=== PATIENT | female | born 1980 | race Caucasian/White ===

== ENCOUNTER 2016-10-30 00:50 | Emergency (ER) | payer BC ==
[~2016-10-30] VITALS: Ht 170.2 cm; Wt 70.3 kg
[2016-10-30] MEDS ORDERED: BENADRYL25 MG ORAL (01:04)
[2016-10-30] MEDS ORDERED: ZYRTEC10 MG ORAL (01:04)
[2016-10-30] MEDS ORDERED: VESTURA 3 MG-01 EACH PO (01:04)
[2016-10-30 01:05] VITALS: BP 121/80
--- NOTE | 2016-10-30 01:27 | Emergency Room Report ---
History of Present Illness General Chief Complaint: Abdominal Pain Source: Patient Present Illness HPI Is a 35-year-old female with no past medical history. She presents with chief complaint abdominal cramps with vomiting and diarrhea. Onset was about 3 hours ago. Denies any fever or chills. Pain is crampy in nature 08/04. Vomiting is nonbloody nonbilious. Watery diarrhea. No other complaint. Allergies: Coded Allergies: AMPICILLIN (Verified Allergy, Unknown, 10/30/16) SHRIMP (Verified Allergy, Unknown, 10/30/16) Patient History Past Medical History: see triage record, old chart reviewed Past Surgical History: appy, other Pertinent Family History: none Social History: Denies: smoking Last Menstrual Period: 2 WEEKS AGO Now: No Immunizations: other Reviewed Nursing Documentation: PMH: Agreed, PSxH: Agreed Nursing Documentation-PMH Hx Asthma: Yes Review of Systems Eye: Denies: blurred vision, eye pain ENT: Denies: ear pain, nose congestion, throat swelling Respiratory: Denies: cough, shortness of breath Cardiovascular: Denies: chest pain, palpitations Gastrointestinal: Reports: abdominal pain, diarrhea, nausea, vomiting Musculoskeletal: Denies: back pain, joint pain Skin: Denies: rash Neurological: Denies: headache, numbness Endocrine: Denies: increased thirst, increased urine Hematologic/Lymphatic: Denies: easy bruising All Other Systems: negative except mentioned in HPI Physical Exam Vital Signs Date Time Temp Pulse Resp B/P Pulse Ox O2 Delivery O2 Flow Rate FiO2 10/30/16 00:58 98.1 64 18 121/80 98 Room Air vital signs normal Sp02 EP Interpretation: reviewed, normal General Appearance: well appearing, no apparent distress, alert Head: normocephalic, atraumatic Eyes: bilateral eye EOMI, bilateral eye PERRL ENT: hearing grossly normal, normal pharynx Neck: full range of motion, supple, no meningismus Respiratory: chest non-tender, lungs clear, normal breath sounds Cardiovascular #1: regular rate, rhythm, no murmur Gastrointestinal: non tender, no mass, no organomegaly, no bruit, non-distended , decreased bowel sounds Musculoskeletal: back normal, gait/station normal, normal range of motion Psychiatric: mood/affect normal Skin: warm/dry Medical Decision Making Diagnostic Impression: Primary Impression: Nausea vomiting and diarrhea ER Course Patient with vomiting and diarrhea. Most likely a viral illness versus gastroenteritis from food poisoning. Doubt acute abdomen or obstruction. Patient felt better now. Possible urinary tract infection. We'll go ahead and treat with antibiotics. Lab Results Impression labs unremarkable Last Vital Signs Date Time Temp Pulse Resp B/P Pulse Ox O2 Delivery O2 Flow Rate FiO2 10/30/16 01:05 98.1 18 121/80 98 Room Air 10/30/16 00:58 64 Status: improved Disposition: HOME, SELF-CARE Condition: Stable Scripts Ondansetron (Zofran) 4 Mg Tablet 4 MG ORAL Q6H Y for Nausea & Vomiting, #10 TAB 0 Refills Prov: FERN GONZALES M.D. 10/30/16 Additional Instructions: Followup with your Dr. in 2-3 days. Return if symptom worsen. Advance diet as tolerated. FERN GONZALES M.D. Oct 30, 2016 01:27
[2016-10-30] MEDS ORDERED: Ketorolac 30mg Inj IV ONE (01:30)
[2016-10-30 01:51] LABS: BASOPHILS % (AUTO) 1.3 % (0.0-2.0); EOSINOPHILS % (AUTO) 1.5 % (0.0-3.0); MEAN CORPUSCULAR HGB CONC 34.3 G/DL (32.0-36.0); MEAN CORPUSCULAR VOLUME 90 FL (80-99); MEAN PLATELET VOLUME 7.9 FL (6.5-10.1); MONOCYTES % (AUTO) 6.2 % (1.0-10.0); PLATELET COUNT 285 K/UL (150-450); RED BLOOD COUNT 4.33 M/UL (4.20-5.40); RED CELL DISTRIBUTION WIDTH 10.3 % (11.6-14.8); WHITE BLOOD COUNT 10.8 K/UL (4.8-10.8)
[2016-10-30 01:54] LABS: NITRITE,URINE NEGATIVE (NEGATIVE)
[2016-10-30 02:00] LABS: APPEARANCE,URINE SLIGHTLY CLOUDY; PROTEIN,URINE 2+ (NEGATIVE)
[2016-10-30 02:01] LABS: KETONES,URINE 2+ (NEGATIVE); LEUKOCYTE ESTERASE ,URINE 1+ (NEGATIVE); UROBILINOGEN,URINE 1 MG/DL (0.0-1.0)
[2016-10-30 02:02] LABS: RBC,URINE TNTC /HPF (0 - 2)
[2016-10-30 02:03] LABS: BACTERIA,URINE MODERATE /HPF; MUCUS,URINE FEW /LPF (NONE/OCC); SQUAMOUS EPITHELIAL CELL,UR MODERATE /LPF (NONE/OCC)
[2016-10-30 02:07] LABS: ALANINE AMINOTRANSFERASE 10 U/L (3-33); ALBUMIN/GLOBULIN RATIO 1.5 (1.0-2.7); ANION GAP 14 (5-15); ASPARTATE AMINO TRANSFERASE 20 U/L (5-40); CALCIUM 9.4 mg/dL (8.6-10.2); CARBON DIOXIDE 24 mEQ/L (20-30); CHLORIDE 99 mEQ/L (98-107); CREATININE 0.9 mg/dL (0.5-0.9); GLOMERULAR FILTRATION RATE > 60 mL/min (>60); HEMOLYSIS 6; LIPASE 38 U/L (< 60); POTASSIUM 3.6 mEQ/L (3.4-4.9); SODIUM 137 mEQ/L (135-145); TOTAL PROTEIN 7.5 g/dL (6.6-8.7)
[2016-10-30] MEDS ORDERED: ZOFRAN4 MG ORAL (02:15)
[2016-10-30 02:27] VITALS: BP 121/80
== END 2016-10-30 02:27 | disposition home or self-care (01) ==
LOC: EMR 01:00
DX: R11.2 Nausea with vomiting, unspecified (principal); R19.7 Diarrhea, unspecified; Z91.013 Allergy to seafood; Z88.8 Allergy status to other drugs, medicaments and biological substances
CPT/HCPCS: 36415; 80053; 81003; 81025; 83690; 85025; 87086; 96374; 96375; 99284; J1885; J2405